=== PATIENT | female | born 1990 | race Caucasian/White ===

== ENCOUNTER 2018-01-10 19:30 | Emergency (ER) | payer OTHER ==
[2018-01-10 19:49] VITALS: BP 141/94; PULSE 114; TEMP 99; BMI 30.2
--- NOTE | 2018-01-10 20:43 | PDOC ---
History of Present Illness - General History Source: Patient Exam Limitations: No Limitations <Juan Coreas - Last Filed: 01/10/18 21:21> <Cherelle Cuenca - Last Filed: 01/11/18 02:52> - General Chief Complaint: Chest Pain Stated Complaint: CHEST PAIN WITH BREATHING AND LYING DOWN Time Seen by Provider: 01/10/18 19:47 - History of Present Illness Initial Comments: 01/10/18 21:09 The patient is a 27 year old female, with a significant past medical history of lupus, pericarditis, pleuritis, and chronic low grade fevers, who presents to the emergency department with, 2 days of sudden onset worsening chest pain. She describes her pain as a tight feeling worsening upon inhalation and while laying down. Secondary to her symptoms, she reports bilateral edema to the thighs which she is being followed up with her medical staff credentialing coordinator. She denies any long travels, recent procedures, or malignancies. She denies any DVTs in the past. She denies any recent cold symptoms. She denies recent fevers, chills, headache or dizziness. She denies recent nausea, vomit, diarrhea or constipation. She denies recent dysuria, frequency, urgency or hematuria. She denies recent chest pain or shortness of breath. Allergies: NKA Past surgical history: None reported. Social history: Former smoker (Quit 1 year ago). Denies EtOH use and recreational drug use. Primary Care Physician: Dr. Rodrigez (Juan Coreas) Past History <Juan Coreas - Last Filed: 01/10/18 21:21> - Past Medical History Asthma: Yes COPD: No Other medical history: PERICARDITIS, PLEURYSY, LUPUS - Reproductive History Cervical CA: No Dysfunctional Uterine Bleeding: No Ectopic : No Endometrial CA: No Polycystic Ovaries: No Therapeutic (s) & number: No Tubal Ligation: No - Immunization History Immunization Up to Date: Yes - Suicide/Smoking/Psychosocial Hx Smoking History: Former smoker Have you smoked in the past 12 months: No Number of Cigarettes Smoked Daily: 4 If you are a former smoker, when did you quit?: 2016 Information on smoking cessation initiated: No Hx Alcohol Use: No Drug/Substance Use Hx: No Substance Use Type: None <Cherelle Cuenca - Last Filed: 01/11/18 02:52> - Past Medical History Allergies/Adverse Reactions: Allergies Allergy/AdvReac Type Severity Reaction Status Date / Time fluconazole Allergy Mild Hives Verified 01/10/18 19:37 latex Allergy Rash Verified 10/10/15 19:49 Home Medications: Ambulatory Orders Amitriptyline HCl [Elavil -] 10 mg PO HS 01/10/18 Amlodipine Besylate [Norvasc -] 10 mg PO DAILY 01/10/18 Duloxetine HCl [Cymbalta] 20 mg PO DAILY 01/10/18 Hydroxychloroquine Sulfate [Plaquenil] 200 mg PO DAILY 01/10/18 Metoprolol Succinate [Toprol Xl -] 50 mg PO DAILY 01/10/18 predniSONE [Deltasone -] 40 mg PO DAILY #10 tablet 01/11/18 Review of Systems - Review of Systems Able to Perform ROS?: Yes <Juan Coreas - Last Filed: 01/10/18 21:21> <Cherelle Cuenca - Last Filed: 01/11/18 02:52> - Review of Systems Comments:: 01/10/18 21:09 CONSTITUTIONAL: Absent: fever, no chills, no fatigue EYES: Absent: visual changes ENT: Absent: ear pain, no sore throat CARDIOVASCULAR: Present: Chest pain. Absent: no palpitations RESPIRATORY: Absent: cough, no SOB GI: Absent: abdominal pain, no nausea, no vomiting, no constipation, no diarrhea GENITOURINARY: Absent: dysuria, no frequency, no hematuria MUSKULOSKELETAL: Absent: back pain, no arthralgia, no myalgia SKIN: Absent: rash NEURO: Absent: headache (Juan Coreas) *Physical Exam <Juan Coreas - Last Filed: 01/10/18 21:21> <Cherelle Cuenca - Last Filed: 01/11/18 02:52> - Vital Signs Last Vital Signs Temp Pulse Resp BP Pulse Ox 99.0 F 114 H 18 141/94 100 01/10/18 19:36 01/10/18 19:36 01/10/18 19:36 01/10/18 19:36 01/10/18 19:36 - Physical Exam Comments: 01/10/18 21:09 GENERAL: The patient is awake, alert, and fully oriented, in no acute distress. HEAD: Normal with no signs of trauma. EYES: Pupils equal, round and reactive to light, extraocular movements intact, sclera anicteric, conjunctiva clear with no pallor. ENT: Ears normal, nares patent, oropharynx clear without exudates. Moist mucous membranes. NECK: Normal range of motion, supple without lymphadenopathy, JVD, or masses. LUNGS: Breath sounds equal, clear to auscultation bilaterally. No wheeze/ crackles. (+)HEART: Tenderness to the right costal margin. Regular rate and rhythm, normal S1 and S2 without murmur or rub. ABDOMEN: Soft/nontender/nondistended. BS wnl. No guarding or rebound. No palpable masses. No hepatosplenomegaly. EXTREMITIES: Normal range of motion, no edema. No clubbing or cyanosis. No cords, erythema, or tenderness. NEUROLOGICAL: Cranial nerves II through XII grossly intact. Normal speech, normal gait. PSYCH: Normal mood, normal affect. SKIN: Warm, Dry, normal turgor, no rashes or lesions noted. (Juan Coreas) ED Treatment Course - LABORATORY CBC & Chemistry Diagram: 01/10/18 21:30 01/10/18 21:30 <Cherelle Cuenca - Last Filed: 01/11/18 02:52> - ADDITIONAL ORDERS Additional order review: Laboratory Results 01/10/18 01/10/18 01/10/18 21:43 21:30 21:30 D-Dimer 446 Sodium Potassium Chloride Carbon Dioxide Anion Gap BUN Creatinine Creat Clearance w eGFR Random Glucose Calcium Total Bilirubin AST ALT Alkaline Phosphatase Creatine Kinase Creatine Kinase Index CK-MB (CK-2) Troponin I < 0.03 Total Protein Albumin Urine Color Yellow Urine Appearance Clear Urine pH 7.0 Ur Specific [place] 1.025 Urine Protein Negative Urine Glucose (UA) Negative Urine Ketones Trace Urine Blood Negative Urine Nitrite Negative Urine Bilirubin Negative Urine Urobilinogen 0.2 Ur Leukocyte Esterase Negative Urine HCG, Qual Negative 01/10/18 21:30 D-Dimer Sodium 138 Potassium 3.3 L Chloride 105 Carbon Dioxide 26 Anion Gap 7 L BUN 10 Creatinine < 0.8 Creat Clearance w eGFR > 60 Random Glucose 105 Calcium 9.2 Total Bilirubin < 0.5 AST 32 ALT 25 Alkaline Phosphatase 78 Creatine Kinase 220 H Creatine Kinase Index 1.0 CK-MB (CK-2) 2.3 Troponin I Total Protein 7.0 Albumin 3.9 Urine Color Urine Appearance Urine pH Ur Specific [place] Urine Protein Urine Glucose (UA) Urine Ketones Urine Blood Urine Nitrite Urine Bilirubin Urine Urobilinogen Ur Leukocyte Esterase Urine HCG, Qual 01/10/18 21:30 RBC 4.63 MCV 84.9 MCHC 34.3 RDW 12.1 MPV 7.0 L Neutrophils % 66.4 Lymphocytes % 25.6 Monocytes % 6.0 Eosinophils % 1.4 Basophils % 0.6 - RADIOLOGY Radiology Studies Ordered: Category Date Time Status CHEST PA & LAT [RAD] Stat Radiology 01/10/18 22:06 Taken - Medications Given in the ED: ED Medications Discontinued Medications Generic Name Dose Route Start Last Admin Trade Name Manishq PRN Reason Stop Dose Admin Ketorolac Tromethamine 30 mg 01/11/18 00:01 01/11/18 00:03 Toradol Injection - IVPUSH 01/11/18 00:02 30 mg ONCE ONE Administration Progress Note <Juan Coreas - Last Filed: 01/10/18 21:21> <Cherelle Cuenca - Last Filed: 01/11/18 02:52> - Progress Note Progress Note: 12 lead EKG performed and interpreted by me : NSR at 100/min. [place], waveforms and intervals are all normal (Cherelle Cuenca) Medical Decision Making <Juan Coreas - Last Filed: 01/10/18 21:21> <Cherelle Cuenca - Last Filed: 01/11/18 02:52> - Medical Decision Making As noted above, this 27 y.o. woman with a history of lupus and pleuritis/ pericarditis presents with few day history of bilateral anterior lower chest pain, worse with deep breathing and lying flat. Exam as noted, is normal except for right costal margin tenderness. No pleural/pericardial rubs appreciated. CXR unremarkable with no evidence of effusion or inflitrate. Laboratory evaluation including CBC, D-Dimer, Cardiac enzymes not significantly abnormal. The patient states that she has been prescribed prednisone for all previous episodes of pleuritis or pericarditis( not NSAIDs). She has not needed or been prescribed any gastroprotective medications during these prednisone courses Prescription for Prednisone 40mg daily for 5 days, sent to pharmacy. The patient should follow with her medical staff credentialing coordinator within 48 hours (Cherelle Cuenca) *DC/Admit/Observation/Transfer <Juan Coreas - Last Filed: 01/10/18 21:21> <Cherelle Cuenca - Last Filed: 01/11/18 02:52> Diagnosis at time of Disposition: Pleuritis - Discharge Dispostion Disposition: HOME Condition at time of disposition: Stable - Prescriptions Prescriptions: predniSONE [Deltasone -] 40 mg PO DAILY #10 tablet - Referrals Referrals: Mandy Rodrigez MD [Primary Care Provider] - - Patient Instructions Printed Discharge Instructions: Pleurisy Additional Instructions: prednisone 40mg daily for 5 days call your medical staff credentialing coordinator tomorrow AM to arrange followup within 2 days return to ER if you experience worsening pain/shortness of breath/fever - Post Discharge Activity Forms/Work/School Notes: Back to Work - Attestations Scribe Attestion: 01/10/18 21:09 Documentation prepared by Juan Coreas, acting as anesthesiology medical doctor for Cherelle Cuenca MD. (Juan Coreas)
[2018-01-10 21:43] LABS: BASO % 0.6 % (0-2.0); EOS % 1.4 % (0-4.5); HEMATOCRIT 39.3 % (32.4-45.2); HEMOGLOBIN 13.5 GM/dl (10.7-15.3); LYMPH % 25.6 % (8-40); MCH 29.1 pg (25.7-33.7); MCHC 34.3 g/dl (32.0-36.0); MEAN CELL VOLUME 84.9 fl (80-96); NEUT % 66.4 % (42.8-82.8); PLATELET COUNT 361 K/MM3 (134-434); RBC 4.63 M/mm3 (3.60-5.2); RDW 12.1 % (11.6-15.6); WHITE BLOOD COUNT 8.9 K/mm3 (4.0-10.8)
[2018-01-10 21:45] LABS: URINE APPEARANCE Clear; URINE BILIRUBIN Negative (NEGATIVE); URINE BLOOD Negative (NEGATIVE); URINE GLUCOSE (UA) Negative (NEGATIVE); URINE KETONE Trace (NEGATIVE); URINE LEUK ESTERASE Negative (NEGATIVE); URINE NITRITE Negative (NEGATIVE); URINE PROTEIN Negative (NEGATIVE); URINE UROBILINOGEN 0.2 (0.2-1.0)
[2018-01-10 21:46] LABS: URINE COLOR YELLOW
[2018-01-10 21:49] LABS: HCG,QUALITATIVE URINE NEGATIVE
[2018-01-10 22:03] LABS: ALBUMIN 3.9 g/dl (3.5-5.0); ALK PHOS 78 U/L (32-92); ANION GAP 7 (8-16); BLOOD UREA NITROGEN 10 mg/dl (7-18); CALCIUM 9.2 mg/dl (8.4-10.2); CHLORIDE 105 mmol/L (98-107); CO2 26 mmol/L (22-28); GLUCOSE,RANDOM 105 mg/dl (74-106); POTASSIUM 3.3 mmol/L (3.5-5.1); SGOT/AST 32 U/L (10-42); SGPT/ALT 25 U/L (10-40); SODIUM 138 mmol/L (136-145)
[2018-01-10 22:15] LABS: BILIRUBIN,TOTAL < 0.5 mg/dl (0.2-1.0); CREATININE < 0.8 mg/dl (0.6-1.3)
[2018-01-11] MEDS ORDERED: KETOROLAC TROMETHAMINE 30 MG/1 ML VIAL IVPUSH ONE (00:01)
[2018-01-11] MEDS ORDERED: KETOROLAC TROMETHAMINE 30 MG/1 ML VIAL ONE (00:02)
--- NOTE | 2018-01-12 10:39 | EKG ---
Test Reason : Blood Pressure : / mmHG Vent. Rate : 101 BPM Atrial Rate : 101 BPM P-R Int : 156 ms QRS Dur : 090 ms QT Int : 338 ms P-R-T Axes : 053 048 016 degrees QTc Int : 438 ms SINUS TACHYCARDIA OTHERWISE NORMAL ECG NO PREVIOUS ECGS AVAILABLE Confirmed by MD Lito, Emeka ([id number]) on 01/12/2018 10:39:22 AM Referred By: DAVID Confirmed By:Emeka Morse MD
== END 2018-01-11 00:10 | disposition home or self-care (01) ==
LOC: FER 19:30
PROC: 3E0233Z Introduction of Anti-inflammatory into Muscle, Percutaneous Approach (ICD-10-PCS; principal; 2018-01-10)
DX: R09.1 Pleurisy (principal); M32.9 Systemic lupus erythematosus, unspecified; Z87.891 Personal history of nicotine dependence; J45.909 Unspecified asthma, uncomplicated
CPT/HCPCS: 36415; 71046-TC-FY; 80053; 81003; 82550; 82553; 84484; 84703; 85025; 85379; 93005; 99283-25